=== PATIENT | male | born 1970 | race Caucasian/White ===

== ENCOUNTER → 2018-05-05 | Outpatient (CLI) | payer BC ==
--- NOTE | 2018-05-05 15:40 | Diagnostic Imaging Report ---
CLINICAL INDICATION: Preop chest x-ray for esophageal cancer. EXAM: Chest x-ray PA and lateral views. COMPARISONS: None. FINDINGS: [id number] is seen overlying left chest with tip in the distal superior vena cava. Lungs/pleura: Lungs are clear. There is no pneumothorax. There is no pleural effusion. Mediastinum: Unremarkable. Pulmonary vasculature: Unremarkable. Heart: Unremarkable. Bones/extrathoracic soft tissue: There are mildly hypertrophic degenerative osteophytes scattered throughout the thoracic spine. IMPRESSION: There is no radiographic evidence of acute cardiopulmonary process. Dictated by: Dictated on workstation # [id number]
== END ==
LOC: RAD 14:29
PROVIDERS: ATTEND Nurse Practitioner Family
DX: Z01.811 Encounter for preprocedural respiratory examination (principal); C15.9 Malignant neoplasm of esophagus, unspecified; J42 Unspecified chronic bronchitis
CPT/HCPCS: 71046

== ENCOUNTER → 2018-05-06 | Outpatient (CLI) | payer BC ==
[~2018-05-06] MED LIST: RT-ALBUTEROL SULF 2.5 MG/3 ML PRE-MIX VIAL INH ONE; RT-ALBUTEROL SULF 2.5 MG/3 ML PRE-MIX VIAL ONE
== END ==
LOC: EDUNIT# 09:45 → RT 09:54
PROVIDERS: ATTEND Nurse Practitioner Family
DX: J42 Unspecified chronic bronchitis (principal); C15.9 Malignant neoplasm of esophagus, unspecified
CPT/HCPCS: 94060; 94726; 94729